=== PATIENT | female | born 1950 | race Caucasian/White ===

== ENCOUNTER 2018-04-24 19:33 | Inpatient (IN) | payer OTHER ==
[~2018-04-24] VITALS: Ht 152.4 cm; Wt 92.5 kg
[~2018-04-24 19:33] MED LIST: ADULT LOW DOSE81 M1 PO; ALEVE220 M2 PO; ASPIR 8181 M1 PO; ASPIRIN81 M2 PO; AUGMENTIN875 MG PO; Aspirin E.C. PO; COUMADIN1 MG PO; COUMADIN2 MG PO; Coumadin Protocol PO; DIGOX125 MCG PO; DIGOXIN125 MCG PO; ENDOCET 5-3251 EACH PO; FLOMAX0.4 MG PO; GEMFIBROZIL600 MG PO; GLIPIZIDE10 MG PO; GLUCOPHAGE1000 MG PO; Glucotrol XL PO; HUMALOG100 UNIT/1 SC; JANUVIA100 MG PO; LANTUS 10100 UNITS/ SC; LANTUS 3 M100 UNITS/ SC; LANTUS 3 M100 UNITS1 PO; LANTUS 3 M100 UNITS1 SC; LANTUS100 UNIT/1 SQ; LEVEMIR100 UNIT/2 SC; LISINOPRIL PO; LISINOPRIL40 MG PO; LOPID600 MG PO; LOPRESSOR100 M1 PO; LOPRESSOR50 MG PO; LOVENOX80 MG/0.8 SC; Lanoxin,Digitek PO; Lopid PO; Lopressor PO; METFORMIN HCL1000 MG PO; METOPROLOL TAR100 MG PO; NOVOLOG 10100 UNITS/ SC; NOVOLOG SQ; NOVOLOG100 UNIT/2 SC; NOVOLOG100 UNIT/2 SQ; PAROXETINE HCL20 MG PO; PAXIL20 M1 PO; PAXIL20 MG PO; PERCOCET 5/31 TABLET PO; PRAVACHOL80 MG PO; PRAVASTATIN SOD80 MG PO; Paxil PO; Pravachol PO; SIMVASTATIN40 MG PO; WARFARIN PO; ZESTRIL,PRINIVI40 MG PO; ZESTRIL20 MG PO; ZESTRIL40 MG PO; ZOFRAN4 MG PO; Zestril,Prinivil PO
[2018-04-24 20:03] LABS: HEMATOCRIT 42.7 % (36.0-46.0); HEMOGLOBIN 14.3 G/DL (11.9-15.5); MCH 30.1 PG (29.0-34.0); MCHC 33.5 G/DL (30.0-36.0); MCV 89.9 FL (83-99); PLATELET COUNT 452 K/uL (156-360); RBC DIS.WIDTH-CV 13.8 % (11.8-14.6); RBC DIS.WIDTH-SD 45.3 % (39-53); RED BLOOD COUNT 4.75 M/uL (3.80-5.20)
[2018-04-24 20:10] LABS: INTER. NORMALIZED RATIO 1.1
[2018-04-24 20:11] LABS: ALBUMIN 4.1 g/dL (3.2-4.8); CHLORIDE 103 mEq/L (99-109); POTASSIUM 4.7 mEq/L (3.7-5.4); SODIUM 138 mEq/L (136-147)
[2018-04-24 20:12] LABS: AMYLASE 78 IU/L (1-118)
[2018-04-24 20:13] LABS: GLUCOSE 309 mg/dL (70-99); PTT 29.7 SEC (25-37); TOTAL PROTEIN 7.8 g/dL (6.4-8.3)
[2018-04-24 20:15] LABS: TOTAL BILIRUBIN 0.3 mg/dL (0.0-1.0)
[2018-04-24 20:17] LABS: ALKALINE PHOSPHATASE 61 IU/L (3-129); CREATININE 1.5 mg/dL (0.6-1.3); GFR ESTIMATE (CALCULATED) 37 mL/min/
[2018-04-24 20:18] LABS: UREA NITROGEN (BUN) 23 mg/dL (9-23)
[2018-04-24 20:19] LABS: AST (GOT) 16 IU/L (2-34)
[2018-04-24 20:20] LABS: ALT (GPT) 11 IU/L (3-49); LIPASE 35 U/L (1.0-51.0)
[2018-04-24 20:26] LABS: TROP-I INTERPRETATION NEGATIVE; TROPONIN-I 0.02 ng/mL (0.0-0.30)
[2018-04-24] MEDS ORDERED: CITALOPRAM HBR20 MG PO (22:52)
[2018-04-24] MEDS ORDERED: NOVOLIN N100 UNITS/ SC (22:53)
[2018-04-24] MEDS ORDERED: CYANOCOBAL1000 MCG/2 IM (22:54)
[2018-04-24] MEDS ORDERED: ERGOCALCIF50000 UNIT PO (22:55)
[2018-04-24 23:48] LABS: APPEARANCE SL.HAZY ((CLEAR)); BILIRUBIN NEGATIVE; BLOOD NEGATIVE; COLOR YELLOW ((YELLOW)); GLUCOSE (STRIP) >=500; KETONES NEGATIVE; LEUKOCYTES LARGE; NITRITE NEGATIVE; PROTEIN (STRIP) 100; SPECIFIC GRAVITY 1.018 (1.000-1.030); UROBILINOGEN 0.2 MG/DL (0.2-1.0)
[2018-04-25 00:19] LABS: BACTERIA RARE /HPF; EPITHELIAL CELLS 2+ /HPF; MUCUS TRACE /LPF; RED BLOOD CELLS 0-5 /HPF (0-5); UCUL ADDED? YES; WHITE BLOOD CELLS 20-30 /HPF (0-5)
[2018-04-25 02:31] LABS: INTER. NORMALIZED RATIO 1.1
[2018-04-25 02:32] LABS: MAGNESIUM 1.4 mg/dL (1.3-2.7)
[2018-04-25 02:44] LABS: PTT 20.1 SEC (25-37)
[2018-04-25 05:30] VITALS: BP 130/73
[2018-04-25 06:14] LABS: TROP-I INTERPRETATION NEGATIVE; TROPONIN-I 0.03 ng/mL (0.0-0.30)
[2018-04-25 07:51] LABS: THYROTROPIN (TSH) 2.5 MIU/L (0.4-5.5)
[2018-04-25 08:40] VITALS: BP 119/67
[2018-04-25 09:04] LABS: TROP-I INTERPRETATION NEGATIVE; TROPONIN-I 0.02 ng/mL (0.0-0.30)
[2018-04-25 11:54] VITALS: BP 138/80
[2018-04-25 16:19] VITALS: BP 133/63
[2018-04-25 19:45] VITALS: BP 143/89
[2018-04-25 22:59] VITALS: BP 137/70
[2018-04-26 03:00] VITALS: BP 120/62
[2018-04-26 08:21] LABS: BASOPHIL (%) 0.8 % (0-1); BASOPHIL COUNT 0.1 K/uL (0-0.1); EOSINOPHIL (%) 2.9 % (0-5); EOSINOPHIL COUNT 0.3 K/uL (0-0.3); HEMATOCRIT 40.4 % (36.0-46.0); HEMOGLOBIN 13.2 G/DL (11.9-15.5); IMMATURE GRANULOCYTE (%) 0.8 % (0.0-0.7); LYMPHOCYTE COUNT 2.4 K/uL (1.0-2.8); MCH 29.4 PG (29.0-34.0); MCHC 32.7 G/DL (30.0-36.0); MONOCYTE COUNT 1.1 K/uL (0-0.8); NEUTROPHIL (%) 66.5 % (45-76); NEUTROPHIL COUNT 7.9 K/uL (1.8-6.4); PLATELET COUNT 374 K/uL (156-360); RBC DIS.WIDTH-CV 13.8 % (11.8-14.6); RBC DIS.WIDTH-SD 45.4 % (39-53); RED BLOOD COUNT 4.49 M/uL (3.80-5.20); WHITE BLOOD COUNT 11.9 K/uL (4.1-10.2)
[2018-04-26 08:44] LABS: CHLORIDE 106 MEQ/L (99-109); CREATININE 1.1 MG/DL (0.6-1.3); GFR ESTIMATE (CALCULATED) 52 mL/min/; POTASSIUM 4.8 MEQ/L (3.7-5.4); SODIUM 137 MEQ/L (136-147); UREA NITROGEN (BUN) 16 mg/dL (9-23)
[2018-04-26 08:46] LABS: GLUCOSE 92 mg/dL (70-99)
[2018-04-26 09:19] VITALS: BP 137/90
[2018-04-26 12:47] VITALS: BP 155/79
[2018-04-26 16:11] VITALS: BP 135/64
[2018-04-26 20:26] VITALS: BP 122/80
[2018-04-26 22:51] VITALS: BP 136/73
[2018-04-27 03:08] VITALS: BP 132/61
[2018-04-27 06:05] LABS: CHLORIDE 103 MEQ/L (99-109); CREATININE 1.2 MG/DL (0.6-1.3); GFR ESTIMATE (CALCULATED) 47 mL/min/; GLUCOSE 130 mg/dL (70-99); POTASSIUM 4.3 MEQ/L (3.7-5.4); SODIUM 136 MEQ/L (136-147); UREA NITROGEN (BUN) 20 mg/dL (9-23)
[2018-04-27 10:19] VITALS: BP 128/75
[2018-04-27 11:45] VITALS: BP 158/92
[2018-04-27 15:23] LABS: HDL CHOLESTEROL 32 MG/DL (Desirable>=50); LDL CHOLESTEROL 94 mg/dL (Desirable<100); NON-HDL CHOLESTEROL 160 mg/dL (Desirable<160); TOTAL CHOLESTEROL 192 mg/dL (Desirable<200); TRIGLYCERIDES 329 MG/DL (Normal: <150)
[2018-04-27 17:00] VITALS: BP 126/62
[2018-04-27 19:46] VITALS: BP 129/72
[2018-04-27 23:46] VITALS: BP 126/89
[2018-04-28] VITALS (7 sets, daily range): BP systolic 90–138; BP diastolic 52–84
[2018-04-28 10:38] LABS: HEMOGLOBIN A1c (GLYCOHEMOGLOB) 6.9 % (Below 5.7)
[2018-04-29 04:30] VITALS: BP 122/68
[2018-04-29 06:18] LABS: CHLORIDE 107 MEQ/L (99-109); CREATININE 1.3 MG/DL (0.6-1.3); GFR ESTIMATE (CALCULATED) 43 mL/min/; GLUCOSE 112 mg/dL (70-99); POTASSIUM 4.4 MEQ/L (3.7-5.4); SODIUM 138 MEQ/L (136-147)
[2018-04-29 06:19] LABS: UREA NITROGEN (BUN) 35 mg/dL (9-23)
[2018-04-29 06:38] LABS: DIGOXIN 0.9 ng/mL (0.8-2.0)
[2018-04-29 07:09] VITALS: BP 136/89
[2018-04-29 11:07] VITALS: BP 128/58
[2018-04-29] MEDS ORDERED: ELIQUIS5 MG PO (13:12)
[2018-04-29] MEDS ORDERED: PRAVASTATIN SOD80 MG PO (13:12)
[2018-04-29] MEDS ORDERED: LOPRESSOR100 M1 PO (13:12)
[2018-04-29] MEDS ORDERED: DIGOXIN250 MCG PO (13:12)
== END 2018-04-29 16:01 | disposition home or self-care (01) | DRG 309 ==
LOC: EME → EDBD 19:33 → 4EAST 04-25 01:29 → EDOF 04-25 01:29 → ENRESERV 04-25 01:31 → 4EAST 04-25 05:04
PROVIDERS: Emergency Medicine; Family Medicine; Hospitalist; Internal Medicine; Physician Assistant Medical
DX: I48.0 Paroxysmal atrial fibrillation (principal); I10 Essential (primary) hypertension; E78.5 Hyperlipidemia, unspecified; E11.9 Type 2 diabetes mellitus without complications; N39.0 Urinary tract infection, site not specified; F41.9 Anxiety disorder, unspecified; Z82.49 Family history of ischemic heart disease and other diseases of the circulatory system; R00.1 Bradycardia, unspecified; T46.1X5A Adverse effect of calcium-channel blockers, initial encounter; Y92.230 Patient room in hospital as the place of occurrence of the external cause; R53.1 Weakness; T46.0X5A Adverse effect of cardiac-stimulant glycosides and drugs of similar action, initial encounter; I48.92 Unspecified atrial flutter; Z79.84 Long term (current) use of oral hypoglycemic drugs; E53.8 Deficiency of other specified B group vitamins; E55.9 Vitamin D deficiency, unspecified; F40.240 Claustrophobia; I27.20 Pulmonary hypertension, unspecified
CPT/HCPCS: 70450; 70544; 70549; 70551; 71045; 80048; 80053; 80061; 80162; 81003; 82150; 82948; 83036; 83605; 83690; 83735; 84443; 84484; 85025; 85027; 85379; 85610; 85730; 87040; 87086 GA; 93005; 93306; 93971; 99281; 99285; J0696; J1160; J1815; J2060